=== PATIENT | male | born 1995 | race Asian ===

== ENCOUNTER 2022-01-22 05:40 | Day surgery (SDC) | payer MEDICAID ==
[~2022-01-22] VITALS: Ht 185.4 cm; Wt 110.2 kg
[2022-01-22] MEDS ORDERED: ACETAMINOPHEN I.V. 1000 MG 100 ML IV ONE (06:53)
[2022-01-22] MEDS ORDERED: MEPERIDINE HCL/PF 25 MG/ML DISP.SYRIN IVP PRN (08:15)
[2022-01-22] MEDS ORDERED: HYDROmorphone 1 MG/ML INJ. CARTRIDGE IVP PRN ×2 (08:15)
[2022-01-22] MEDS ORDERED: LR 1,000 ML IV SCH (08:15)
[2022-01-22] MEDS ORDERED: hydrALAZINE HCL 20 MG/ML VIAL IVP PRN (08:15)
[2022-01-22] MEDS ORDERED: METOCLOPRAMIDE HCL 10 MG/2 ML VIAL IVP PRN (08:15)
[2022-01-22] MEDS ORDERED: MIDAZOLAM HCL 2 MG/2 ML VIAL (VERSED) IVP PRN (08:15)
[2022-01-22] MEDS ORDERED: LIDOCAINE 1% 10 MG/ML, 20 ML MDV ONE (10:42)
[2022-01-22] MEDS ORDERED: OXYMETAZOLINE HCL 0.05% NASAL SPRAY NS ONE (10:42)
[2022-01-22] MEDS ORDERED: SUGAMMADEX SODIUM 200 MG/2 ML VIAL IV ONE (10:42)
[2022-01-22] MEDS ORDERED: LR 1,000 ML IV.SOLN IV ONE (10:42)
[2022-01-22] MEDS ORDERED: DEXAMETHASONE SOD PHOSPHATE 4 MG/ML VIAL ONE (10:42)
[2022-01-22] MEDS ORDERED: DESFLURANE 15 MIN GAS INH ONE (10:42)
[2022-01-22] MEDS ORDERED: MIDAZOLAM HCL 5 MG/ML VIAL (VERSED) IV ONE (10:42)
[2022-01-22] MEDS ORDERED: NS 1000 ML IV.SOLN IV ONE (10:42)
[2022-01-22] MEDS ORDERED: ROCURONIUM BROMIDE 10 MG/ML (ZEMURON) ONE (10:42)
[2022-01-22] MEDS ORDERED: LIDOCAINE 2%, 20 ML MDV ONE (10:42)
[2022-01-22] MEDS ORDERED: PROPOFOL 200MG/ 20ML VIAL (DIPRIVAN) IV ONE (10:42)
[2022-01-22] MEDS ORDERED: NS IRRIG SOLN 1000 ML IR ONE (10:42)
[2022-01-22] MEDS ORDERED: ONDANSETRON HCL 4 MG/2 ML VIAL ONE (10:42)
[2022-01-22] MEDS ORDERED: fentaNYL CITRATE 250 MCG/5 ML AMP ONE (10:42)
[2022-01-22] MEDS ORDERED: LABETALOL 100 MG/ 20ML VIAL ONE (11:01)
[2022-01-22] MEDS: LABETALOL 100 MG/ 20ML VIAL IVP PRN ×2 (11:05→11:28)
[2022-01-22 12:05] VITALS: BP_SYST 141
== END 2022-01-22 13:30 | disposition home or self-care (01) ==
LOC: SOR 05:40 → SMU 05:40 → SOR 13:30
PROVIDERS: ATTEND Otolaryngology
DX: J32.9 Chronic sinusitis, unspecified (principal); D38.5 Neoplasm of uncertain behavior of other respiratory organs; J34.89 Other specified disorders of nose and nasal sinuses; I10 Essential (primary) hypertension; E66.9 Obesity, unspecified; Z20.822 Contact with and (suspected) exposure to COVID-19; Z68.31 Body mass index [BMI] 31.0-31.9, adult; Z79.899 Other long term (current) drug therapy
CPT/HCPCS: 30140; 30520; 31255; 31256; 31298; 36415 ×2; 87070 ×2; 87075; 87101; 87186; 87426; 87635; 88305; C1726; J0131; J1100; J2001 ×2; J2250; J2405; J2704; J3010; J3465; J3490 ×2; J7030; J7120; U0003